=== PATIENT | female | born 1985 | race Native Hawaiian/Other Pacific Islander ===

== ENCOUNTER → 2019-05-04 | Outpatient (CLI) | payer BC | END | disposition home or self-care (01) | LOC: LABWHC1 09:48 | PROVIDERS: ATTEND Obstetrics & Gynecology | DX: N97.9 Female infertility, unspecified (principal) | CPT/HCPCS: 36415; 84144 ==

== ENCOUNTER 2021-09-24 05:35 | Day surgery (SDC) | payer BC ==
[2021-09-22 14:54] VITALS: BMI 33.8
[~2021-09-24 05:35] MED LIST: Pre Op ABX Message 1 EACH MISC MISCELLANE ONE
[2021-09-24] MEDS ORDERED: LACTATED RINGERS 1,000 ML IV ONE (06:46)
[2021-09-24] MEDS ORDERED: ONDANSETRON 4 MG/2 ML VIAL ONE (06:49)
[2021-09-24] MEDS ORDERED: ONDANSETRON 4 MG/2 ML VIAL IVP ONE (06:50)
[2021-09-24] MEDS ORDERED: ePHEDrine 50 MG/ML 1 ML AMP ONE (06:50)
[2021-09-24] MEDS ORDERED: PROPOFOL 10 MG/ML 20 ML VIAL IV ONE (06:50)
[2021-09-24] MEDS ORDERED: fentaNYL (PF) 50 MCG/ML 2 ML AMP ONE (06:50)
[2021-09-24] MEDS ORDERED: MIDAZOLAM 2 MG/2 ML VIAL ONE (06:50)
[2021-09-24] MEDS ORDERED: LIDOCAINE 1% INJ 10MG/ML (20 ML MDV) ONE (06:50)
[2021-09-24] MEDS ORDERED: DEXAMETHASONE SOD PHOSPHATE 4 MG/ML 1 ML VIAL IV ONE (06:51)
[2021-09-24] MEDS ORDERED: SODIUM CHLORIDE 0.9% 50 ML with ceFAZolin 2,000 MG IV ONE ×2 (07:10)
[2021-09-24] MEDS ORDERED: BUPIVACAINE (PF) 0.5% 30 ML VIAL SQ ONE (07:18)
[2021-09-24 08:21] VITALS: TEMP 97.3
--- NOTE | 2021-09-24 08:34 | P.OP ---
Date of Procedure: 09/24/21 Preoperative Diagnosis: Hallux valgus left foot Postoperative Diagnosis: Same Procedure(s) Performed: Bunionectomy with distal first metatarsal osteotomy left foot Implants: Novastep central lock size 2 Anesthesia: GETA Surgeon: Jonathan Teixeira Estimated Blood Loss (ml): 2 Pathology: none sent Condition: stable Disposition: PACU Indications for Procedure: Painful bunion left foot nonresponsive to conservative care Description of Procedure: The patient was brought into the operating room and placed on table in the supine position. Timeout was taken to confirm correct patient identifiers, correct procedure, and correct site of surgery. When all staff in the operating room were in agreement, the patient was induced and placed under general anesthesia. A well-padded tourniquet was placed on the left ankle and then 20 mL of 0.25% Marcaine was injected as a posterior tibial nerve block as well as a forefoot block. The left foot was then prepped and draped in the usual manner. The foot was exsanguinated with an Esmarch bandage and the tourniquet inflated to 250 mmHg. Attention was directed over the medial aspect of the first metatarsal phalangeal joint, where a linear incision was made between the neurovascular structures. The incision was deepened down to the subcutaneous layer careful to identify, avoid, and retract any neurovascular structures and cauterize any bleeding vessels. Dissection was then continued down to level the first metatarsal phalangeal joint capsule. 2 semi-elliptical converging incisions are made on the medial aspect of the joint capsule. The interposing piece of capsule was removed which would help facilitate sesamoid correction upon closure. The capsule was then reflected from the medial aspect of the first metatarsal head. The sesamoid apparatus was distracted plantarly and then the lateral sesamoid collateral ligament was transected and a lateral capsulotomy performed. A sagittal saw was then used to remove a small portion of bone off the medial aspect of the first metatarsal head to provide a flat surface for the implant. An osteotomy was then performed through the first metatarsal straight medial to lateral perpendicular to the long access and located just proximal to the neck of the metatarsal. Once the osteotomy was completed the reduction tool was used to shift the capital fragment for the correction intermetatarsal angle. Then the guidewire was inserted down the medial side of the shaft of the first metatarsal where well to long access. The hole was then reamed and then the sizers placed over the wire to determine the amount of offset. It was determined that the size 2 was the appropriate amount of offset. The sizer was removed and the guidewire left in place the implant was placed on the insertion jig and then slid over the guidewire and impacted until the laser line met the appropriate landmark on the medial side of the first metatarsal shaft. The vacuum spindle sander was then removed and then the drill guide attached to the distal part of the plate. A distal locking screw was then placed through the plate. Drilling and placement were done under direct fluoroscopic visualization so that the screw was not bicortical. Then the first metatarsal head was rotated for peripheral plane correction and once that was confirmed under fluoroscopy the locking pins were placed in the proximal part of the jig to hold the device in place. The drill guide was then placed through the jig for the screws that would go through the jing of the fixation device. Small stab incisions are made to the skin, then countersinking was performed and then the area drilled under fluoroscopy until the lateral cortex was breached. His were then inserted and then advanced until they were flush which was confirmed under fluoroscopy. Then the drill guide and guidewires removed and the jig removed. 2 distal locking screws were then placed in the plate through the metatarsal head again under direct fluoroscopic visualization to keep this screws unicortical. Final fluoroscopic imaging showed a correct amount of shift of the capital fragment with correction the intermetatarsal angle and anatomic alignment of the sesamoid apparatus. All fixation was properly placed and intact. A sagittal saw was used to round off the distal edge of the medial side of the first metatarsal so that wasn't protruding. The wound is then thoroughly irrigated with antibiotic saline. The first metatarsal phalangeal joint capsules closed with 0 Vicryl while holding the great toenail correct position. Subcu closure was done with 4-0 Monocryl. Skin closure was done with 4-0 Stratafix in a running subcuticular manner. Dermal glue was applied across incision allowed to dry. Steri-Strips are placed across incision. Adaptic and a dry dressing applied to left foot. The tourniquet was released and capillary refill return to all digits on the left foot. The patient was then placed in a well-padded, well molded plaster posterior mold/sugar tong splint. Ankle was held in neutral position as the splint dried. Then anesthesia was reversed and the patient was taken recovery with vital signs stable.
[2021-09-24 09:34] VITALS: BP 107/66; PULSE 82; RESP 20
== END 2021-09-24 10:59 | disposition home or self-care (01) ==
LOC: OR 05:35
PROVIDERS: ATTEND Podiatrist
DX: M20.12 Hallux valgus (acquired), left foot (principal); E03.9 Hypothyroidism, unspecified; Z83.3 Family history of diabetes mellitus; Z82.49 Family history of ischemic heart disease and other diseases of the circulatory system; Z79.899 Other long term (current) drug therapy; Z98.890 Other specified postprocedural states
CPT/HCPCS: 81025; 28296; C1713; J2250; J1100; J2405; J0690; J2001; J3010; J2704

== ENCOUNTER → 2022-12-07 | Outpatient (CLI) | payer BC ==
--- NOTE | 2022-12-07 15:58 | CT ---
EXAMINATION TYPE: CT abdomen w con DATE OF EXAM: 12/07/2022 COMPARISON: None INDICATION: Left lower quadrant pain,hernia concern, stomach pain-per office DLP: 406.4 mGycm, Automated exposure control for dose reduction was used. CONTRAST: 70 mL of Isovue 300. Study performed with Oral Contrast TECHNIQUE: Axial images were obtained from above the diaphragm to the pubic rami in the axial plane a t 5 mm thick sections. Reconstructed images are reviewed on the computer in the coronal plane. FINDINGS: Limited CT sections are obtained the lung bases. The lung bases are clear. CT ABDOMEN: The very tiny periumbilical hernia may be present containing mesenteric fat with an openi ng of 0.6 cm. Liver: Normal Spleen: Normal Pancreas: Normal Adrenal glands: The adrenal glands are normal. Gallbladder: Normal Kidneys: No masses are evident. No hydronephrosis is present. No cysts are present. Delayed images were obtained through the kidneys, which remain unremarkable. Aorta: Normal Inferior vena cava: Normal. Loops of bowel within the abdomen and upper pelvis are normal. The study is performed without ora l contrast limiting bowel evaluation. Appendix: Normal as visualized. IMPRESSIONS: 1. Tiny periumbilical fat-containing hernia with an opening is 0.6 cm. Anterior abdominal wall other dykes appears intact.
== END | disposition home or self-care (01) ==
LOC: RADCTMAIN 07:44
PROVIDERS: ATTEND Family Medicine
DX: K42.9 Umbilical hernia without obstruction or gangrene (principal); E28.2 Polycystic ovarian syndrome; R10.32 Left lower quadrant pain
CPT/HCPCS: 74160; Q9967

== ENCOUNTER → 2023-06-15 | Outpatient (CLI) | payer OTHER ==
--- NOTE | 2023-06-15 10:25 | MR ---
EXAMINATION TYPE: MR lumbar spine wo con DATE OF EXAM: 06/15/2023 COMPARISON: NONE HISTORY: Low back pain shooting into rt hip and groin TECHNIQUE: T1 and T2 axial and sagittal images of the lumbar spine are submitted. FINDINGS: There is no abnormal signal seen within the visualized spinal cord or paraspinal soft tissu es. At L1-2 there is no evidence of disc herniation, degenerative disc disease, canal stenosis, or forami nal encroachment At L2-3 there is no evidence of disc herniation, degenerative disc disease, canal stenosis, or forami nal encroachment At L3-4 there is no evidence of disc herniation, degenerative disc disease, canal stenosis, or forami nal encroachment At L4-5 there is no evidence of disc herniation, degenerative disc disease, canal stenosis, or forami nal encroachment At L5-S1 there is there is disc desiccation. There is a small central and right paracentral disc prot rusion. This results in mild flattening of the thecal sac. Mild hypertrophic change and ligamentum fl avum hypertrophy are noted. Neural foramina are patent. Incidental note made of Tarlov cysts in the sacrum. Incidental note is made of disc desiccation T10-T11 with degenerative disc disease and minimal centra l disc bulging. Tiny vertebral body hemangioma T12. IMPRESSION: 1. Small subligamentous central and right paracentral disc protrusion L5-S1 results in mild flattenin g of thecal sac but no evidence of foraminal encroachment.
== END | disposition home or self-care (01) ==
LOC: RADMRIMAIN 08:34
PROVIDERS: ATTEND Family Medicine
DX: M51.17 Intervertebral disc disorders with radiculopathy, lumbosacral region (principal)
CPT/HCPCS: 72148

== ENCOUNTER → 2024-04-24 | Outpatient (CLI) | payer OTHER ==
[2024-04-24 09:43] VITALS: BP 132/80; PULSE 77; RESP 16; TEMP 97.1
--- NOTE | 2024-04-24 14:50 | P.PAINPG ---
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 Pt states pain level is provoked at 6 /10 in intensity, constant, localized in the lumbar spine, predominantly axial, dull in character w occasional shooting pain towards the R hip and groin. Pain is provoked by . Pain is alleviated by PT x 12 wk which ended in May 2023, physician guided home exercises weekly at the gym since Spring 2022, medications (Naproxen, Aleve, Ibu), repositioning and rest . Oswestry axial pain score at 22. PMH: OA, Asthma, Hypothyroidism PSH: L Bunionectomy (2020) SH: Negative x3 FH: Non contributory All: See list Meds: See list REVIEW OF ORGAN SYSTEMS: CONSTITUTIONAL: No fevers or chills. No recent weight l oss. NEUROLOGICAL: + numbness and tingling along the distal extremities. No seizure disorders or headaches. MUSCULOSKELETAL: + pain PSYCHIATRIC: Denies current depression or suicidal thoughts. Physical Examinations : Constitutional : Cooperative , not in acute distress . Neurologic : Cranial nerve II to XII intact. No focal neurological deficits. Psychiatric : alert & oriented x 3. Matching mood & appropriate affect. Judgment & insight intact. Musculoskeletal : Cervical Spine Motor strength in the deltoid and biceps: Normal right side. Normal Left side Motor strength biceps and the wrist extensors: Normal right side . Normal left side Motor strength in the triceps muscle: Normal right side. Normal left side Deep tendon reflexes: Normal at the biceps. Normal at Brachioradialis. Normal at triceps Vertebral body tenderness to deep palpation over Cervical facet loading test: positive bilaterally Spurling test: positive bilaterally Neck distraction test: positive bilaterally Antonio sign: positive bilaterally Lumbar spine Motor strength lower extremities ,thigh and legs 5/5 Right side , 5/5 Left side Deep tendon reflexes : Normal Knee Jerk. Normal Ankle Jerk Vertebral body tenderness over L5 Ling Test positive Lumbar facet Loading Test: positive Right / positive Left Range of motion of the lumbar spine Flexion 30 degrees, extension 10 degrees Straight Leg Raise test: Left/ Right positive at <35 degrees Nayely test: positive right / positive left. Severe tenderness over the Sacroiliac joint on the Right / Left sides Gaenslen test: positive bilaterally Seated flexion test: positive bilaterally. Sacral spine : Severe tenderness over the Sacroiliac joint: right side / left side Range of motion: Flexion of the lumbar spine <60 degrees Range of motion: Extension of the lumbar spine <20 degrees Gaenslen's Test positive Nayely test: positive right side / left side Thigh Thrust Test Sacral Thrust Test Imaging: MRI non contrast of the lumbar spine from 06/15/23 reviewed Assessment/ Plan : Lumbar DDD Recommendation of R paramedian DENNIS L5-S1 #1. May need a series of injections for optimal pain relief. Risks, benefits of procedure discussed and patient verbalized understanding. Admits to anti- coagulant use or medical history of diabetes. Protocol for discontinuation/ continuation of medications miki procedure discussed. All questions answered. I have spent greater than 30 minutes on patient care today. Dr Underwood was available by phone for the evaluation of this patient. The time was used to review the medical records including relevant urine studies and Prescription history (MAPs), review of the available imaging, evaluation and examination of the patient, coordination of care with the medical staff and if applicable referring physicians, as well as creation of the medical record Home Medications: Ambulatory Orders Cetirizine HCl [Zyrtec] 10 mg PO 1000 09/22/21 Levothyroxine Sodium [Synthroid] 75 mcg PO 0230 09/22/21 Montelukast [Singulair] 10 mg PO 0 09/22/21 HYDROcodone/APAP 5-325MG [Bowden 5-325] 1 tab PO Q6HR PRN #30 tab 09/24/21 Controlled Substance Measures - Controlled Substance Measures Is patient prescribed a controlled substance at discharge?: No
== END ==
LOC: PNWHC3 09:20
PROVIDERS: ATTEND Specialist
DX: M51.16 Intervertebral disc disorders with radiculopathy, lumbar region (principal)
CPT/HCPCS: 99211